=== PATIENT | female | born 1945 | race Caucasian/White ===

== ENCOUNTER → 2016-05-22 18:42 | Outpatient (CLI) | payer MEDICARE, OTHER ==
[2011-07-27 16:29] VITALS: BMI 28.6
== END | disposition home or self-care (01) ==
LOC: D.MAMMO 15:15
DX: Z12.31 Encounter for screening mammogram for malignant neoplasm of breast (principal)

== ENCOUNTER 2016-12-25 05:47 | Day surgery (SDC) | payer MEDICARE, OTHER ==
[2016-12-24 13:12] LABS: BASOPHILS 0.7 % (0-2); EOSINOPHILS 4.3 % (0-7); HEMATOCRIT 30.2 % (36.0-48.0); HEMOGLOBIN 9.6 g/dL (12-16); IMMATURE GRANULOCYTES 0.3 % (0-5); MCH 32.8 pg (26.0-34.0); MCHC 31.8 g/dL (31.0-37.0); MCV 103.1 fL (80.0-100.0); MEAN PLATELET VOLUME 10.2 fL (7.4-10.4); MONOCYTES 6.7 % (2-11); PLATELET COUNT 286 10x3/uL (130-400); RBC 2.93 10x6/uL (4.00-5.40); RDW 17.4 % (11.5-14.5)
[2016-12-24 13:21] LABS: APTT 23.3 SECONDS (22.8-39.4)
[2016-12-24 13:30] LABS: ANION GAP 16.3 mmol/L (8-16); CREATININE - SERUM 5.2 mg/dL (0.6-1.3); POTASSIUM - SERUM 4.3 mmol/L (3.5-5.1)
[~2016-12-25] VITALS: Ht 167.6 cm; Wt 71.7 kg
[~2016-12-25 05:47] MED LIST: ASPIRIN EC81 M1 PO; CO Q-1050 MG PO; FENOFIBRATE134 MG PO; LOSARTAN POTASS25 MG PO; PEPCID20 MG PO; PROCRIT/EP40000 UNIT SQ; PROLIA INJ 660 MG/M1 IJ; PYRIDOXINE HCL100 MG PO; STOOL SOFTENER100 M1 PO; VITAMIN D5000 UNIT PO
[2016-12-25 07:11] VITALS: BP 124/56; Ht 167.6 cm; Wt 71.7 kg
[2016-12-25] MEDS ORDERED: ULTRAM50 MG PO (10:13)
--- NOTE | 2016-12-25 12:59 | NUR ---
1115 IV DC WITH CATHER TIP INTACT
--- NOTE | 2016-12-25 13:00 | OP ---
PATIENT NAME: GARRETT GASPAR MEDICAL RECORD: [id number] :47 LOCATION:[facility] ADMISSION DATE: SURGEON: YANA DUMONT MD DATE OF OPERATION: 12/25/2016 REFERRING PHYSICIAN: Yasir Briones MD PREOPERATIVE DIAGNOSIS: Chronic kidney disease stage IV. POSTOPERATIVE DIAGNOSIS: Chronic kidney disease stage IV. OPERATION PERFORMED: Creation of a right wrist Alonzo-type radiocephalic AV fistula. SURGEON: Yana Dumont MD ANESTHESIA: Regional nerve block plus general anesthesia with LMA per ASSISTANT CENTER MANAGER. PREOPERATIVE NOTE: Ms. Gaspar is a very pleasant 71-year-old white female with chronic kidney disease, who, it is anticipated, will require dialysis and was referred to me for provision of a preemptive AV fistula. She is brought to the OR today as an outpatient to have that operation. She has a pacemaker on the left, so despite being right handed, we are going to place the pacemaker on the right. Her preoperative vein map studies indicated a potentially usable cephalic vein and radial artery for a Alonzo AV wrist fistula. DESCRIPTION OF PROCEDURE: Under regional block anesthesia, which was utilized for vasodilatation; and general anesthesia by LMA per ASSISTANT CENTER MANAGER, the patient's right arm was prepped and draped in a sterile manner. A Herod drain was used as a proximal venous tourniquet and nitroglycerin ointment was applied to the intact skin of arm and forearm. The patient did indeed display a significant venodilation with a visible cephalic vein at the wrist and a large median cubital vein. Ultrasound examination demonstrated the cephalic vein at the wrist to be 3 mm to 4 mm in diameter with a good lumen proximally. The radial artery appeared healthy without atherosclerotic change. I elected to go ahead with an attempted wrist fistula. I made a longitudinal incision at the radial aspect of the wrist and exposed the cephalic vein and dissected it from the surrounding tissues. I treated it with topical papaverine. It was closed distally with 2 Hemoclips and then transected and bevelled. It was flushed, hydrostatically distended, dilated with heparinized saline, and treated repeatedly with topical papaverine. The radial artery was exposed and controlled proximally and distally with Silastic loops. Small branches were divided with electrocautery. The artery was occluded and opened, flushed proximally and distally with heparinized saline, and then an approximately 5-mm long ____ anastomosis was created with the bevelled end of vein to side of artery with running 7-0 Prolene. When the suture line was completed and the occluding atraumatic vascular clamp on the vein and the Silastic loops on the artery were released, excellent flow developed in the fistula. The suture line was hemostatic. There were no kinks or other apparent complications. I went on then to close the wound with interrupted inverted 3-0 Vicryl, running intracuticular 4-0 Monocryl, and Dermabond glue. The skin was sealed and closed with Dermabond glue and dressed with Maxorb Ag, Tegaderm, and Cavilon skin prep. The patient was awakened and taken to the recovery room in stable condition. OPERATIVE REPORT [id number] GARRETT GASPAR There was no blood loss during the procedure. All sponges, instruments, and needles were accounted for. No drain was used. No surgical specimen was submitted for histopathology. PLAN: The patient will go home today with a prescription for tramadol 50 mg, she can take one tablet or half a tablet every 4-6 hours p.r.n. for pain. She should elevate her arm, and if possible, leave the original operative dressing intact. I will have an appointment arranged for her to return to see me next week for wound check and dressing change. TRANSINT:[id number] Voice Confirmation ID: [id number] DOCUMENT ID: [id number] YANA DUMONT MD at 1300 CC: YASIR BRIONES MD [id number] DICTATION DATE: 12/25/16 1025 LSAT INSTRUCTOR: 12/25/16 [id number] [place] [address]
== END 2016-12-25 13:01 | disposition home or self-care (01) ==
LOC: D.OPS 05:47 → D.PAN 08:00 → D.OPS 13:01
PROVIDERS: Surgery
DX: I12.9 Hypertensive chronic kidney disease with stage 1 through stage 4 chronic kidney disease, or unspecified chronic kidney disease (principal); N18.4 Chronic kidney disease, stage 4 (severe); K21.9 Gastro-esophageal reflux disease without esophagitis; Z01.812 Encounter for preprocedural laboratory examination

== ENCOUNTER 2017-01-05 15:49 | Emergency (ER) | payer MEDICARE, OTHER ==
[2016-12-25 07:11] VITALS: BMI 25.5
[~2017-01-05 15:49] MED LIST changes: +ULTRAM50 MG PO
== END 2017-01-05 17:54 | disposition home or self-care (01) ==
LOC: D.ER 15:49
DX: S92.352A Displaced fracture of fifth metatarsal bone, left foot, initial encounter for closed fracture (principal); W10.9XXA Fall (on) (from) unspecified stairs and steps, initial encounter; Y93.89 Activity, other specified; Y92.029 Unspecified place in mobile home as the place of occurrence of the external cause; K21.9 Gastro-esophageal reflux disease without esophagitis

== ENCOUNTER 2017-03-13 11:00 | Outpatient (CLI) | payer MEDICARE, OTHER ==
[~2017-03-13] VITALS: Ht 167.6 cm; Wt 68.6 kg
[2017-03-13 11:52] VITALS: BP 153/70; Ht 167.6 cm; Wt 68.6 kg
== END 2017-03-13 11:55 | disposition home or self-care (01) ==
LOC: D.OPS 11:00
DX: M81.0 Age-related osteoporosis without current pathological fracture (principal)

== ENCOUNTER 2017-03-31 10:15 | Emergency (ER) | payer MEDICARE, OTHER ==
[2017-03-13 11:52] VITALS: BMI 24.4
[2017-03-31 11:41] LABS: APPEARANCE CLEAR (CLEAR); BILIRUBIN NEGATIVE (NEGATIVE); COLOR YELLOW (YELLOW); GLUCOSE 50 mg/dL (NEGATIVE); KETONE NEGATIVE (NEGATIVE); NITRITE NEGATIVE (NEGATIVE); PROTEIN 2+ mg/dL (NEGATIVE); UROBILINOGEN NORMAL (NORMAL)
[2017-03-31 11:42] LABS: BASOPHILS 0.1 % (0-2); EOSINOPHILS 0.1 % (0-7); HEMATOCRIT 28.6 % (36.0-48.0); HEMOGLOBIN 8.9 g/dL (12-16); IMMATURE GRANULOCYTES 0.3 % (0-5); LYMPHOCYTES 2.6 % (15-50); MCH 30.6 pg (26.0-34.0); MCHC 31.1 g/dL (31.0-37.0); MCV 98.3 fL (80.0-100.0); MEAN PLATELET VOLUME 10.6 fL (7.4-10.4); MONOCYTES 7.8 % (2-11); NEUTROPHILS 89.1 % (40-80); PLATELET COUNT 244 10x3/uL (130-400); RBC 2.91 10x6/uL (4.00-5.40); RDW 17.2 % (11.5-14.5); WBC 14.7 10x3/uL (4.8-10.8)
[2017-03-31 11:42] LABS: BACTERIA MODERATE /hpf (NONE SEEN); EPITHELIAL CELLS 0-5 /hpf (0-5); RED CELLS - URINE OCC /hpf (0-5); WHITE CELLS - URINE NSEEN /hpf (0-5)
[2017-03-31 11:55] LABS: ALBUMIN 3.7 g/dL (3.4-5.0); ANION GAP 20.3 mmol/L (8-16); BILIRUBIN - TOTAL 0.8 mg/dL (0.2-1.3); CARBON DIOXIDE 17.8 mmol/L (21.0-32.0); CREATININE - SERUM 5.2 mg/dL (0.6-1.3); POTASSIUM - SERUM 4.1 mmol/L (3.5-5.1); PROTEIN - SERUM 7.4 g/dL (6.4-8.2)
[2017-03-31 11:57] LABS: CALCIUM 5.5 mg/dL (8.5-10.1)
== END 2017-03-31 13:19 | disposition home or self-care (01) ==
LOC: D.ER 10:15
PROVIDERS: Emergency Medicine; Nurse Practitioner Family
DX: S39.012A Strain of muscle, fascia and tendon of lower back, initial encounter (principal); X58.XXXA Exposure to other specified factors, initial encounter; Y93.89 Activity, other specified; Y92.019 Unspecified place in single-family (private) house as the place of occurrence of the external cause; M62.830 Muscle spasm of back; K21.9 Gastro-esophageal reflux disease without esophagitis; I10 Essential (primary) hypertension

== ENCOUNTER 2017-07-19 05:35 | Day surgery (SDC) | payer MEDICARE, OTHER ==
[2017-07-18 12:18] LABS: BASOPHILS 0.7 % (0-2); EOSINOPHILS 5.2 % (0-7); HEMATOCRIT 33.5 % (36.0-48.0); HEMOGLOBIN 10.3 g/dL (12-16); IMMATURE GRANULOCYTES 0.1 % (0-5); LYMPHOCYTES 12.2 % (15-50); MCH 28.5 pg (26.0-34.0); MCHC 30.7 g/dL (31.0-37.0); MCV 92.5 fL (80.0-100.0); MEAN PLATELET VOLUME 10.2 fL (7.4-10.4); MONOCYTES 7.8 % (2-11); RBC 3.62 10x6/uL (4.00-5.40); RDW 17.8 % (11.5-14.5); WBC 7.3 10x3/uL (4.8-10.8)
[2017-07-18 12:19] LABS: PLATELET COUNT 329 10x3/uL (130-400)
[2017-07-18 12:21] LABS: ANION GAP 13.9 mmol/L (8-16); CALCIUM 11.5 mg/dL (8.5-10.1); CARBON DIOXIDE 28.2 mmol/L (21.0-32.0); CREATININE - SERUM 7.4 mg/dL (0.6-1.3); POTASSIUM - SERUM 4.1 mmol/L (3.5-5.1)
[2017-07-18 12:23] LABS: APTT 25.9 SECONDS (22.8-39.4); INR 1.09 (0.85-1.17); PROTIME 13.7 SECONDS (11.6-15.0)
[~2017-07-19] VITALS: Ht 167.6 cm; Wt 64.0 kg
--- NOTE | ~2017-07-19 | OP ---
PATIENT NAME: GARRETT MCGEE MEDICAL RECORD: [id number] :47 LOCATION:[facility] ADMISSION DATE: SURGEON: YANA DUMONT MD DATE OF OPERATION: 07/19/2017 REFERRING PHYSICIAN: Yasir Briones MD PREOPERATIVE DIAGNOSIS: End-stage renal disease. OPERATION PERFORMED: Laparoscopic implantation of peritoneal dialysis catheter. ANESTHESIA: General endotracheal per SECURITY INSTALLATION SALES TECHNICIAN. SURGEON: aYna Dumont MD PREOPERATIVE NOTE: This 72-year-old white female patient has been followed with chronic kidney disease and she now needs to start dialysis. She has a radiocephalic fistula, which is functioning and has matured, but has not been used, but she is to start dialysis with a peritoneal catheter, which she is here for implantation of today. Physical examination reveals the abdomen to be soft and nontender. She has a right lower quadrant paramedian scar as well as a midline lower abdomen laparotomy scar. The paramedian scar was made for a oophorectomy and the midline abdomen was used for total abdominal hysterectomy completed in 2 stages. She is brought to the operating room now for a laparoscopy and PD catheter insertion. DESCRIPTION OF PROCEDURE: Under general endotracheal anesthesia per SECURITY INSTALLATION SALES TECHNICIAN, the patient was placed in supine position and prepped and draped in a sterile manner. I made an incision in the left upper quadrant and inserted a 5-mm diameter Optiview Xcel port with a 5 mm 0-degree laparoscope in place. The abdomen was insufflated with carbon dioxide. Examination then demonstrated extensive adhesions in the right side of the abdomen and in the pelvis with the left side of the abdomen being fairly wide open. I did only very minimal adhesiolysis and then decided to go ahead and place a catheter directed towards the pelvis on the left side. I chose a left-sided Medcomp dual cuff swan neck coil catheter and held to the end of the catheter at the level of the symphysis pubis and identified the site on the anterior abdominal wall to the left of the midline for the insertion into the rectus sheath. I made an incision there and exposed the anterior rectus sheath and then inserted an introducer needle into the rectus muscle and directed it inferiorly and laterally keeping within the substance of the rectus muscle as far as possible and in the preperitoneal space. This is done to create a tunnel, which is intended to direct the catheter towards the pelvis. A guidewire and then a peel-away sheath were inserted and then the catheter was inserted. The cuff was embedded in the rectus deep to the anterior rectus sheath where a pursestring suture of 0 Vicryl was placed. To assure the catheter would not drift into the upper quadrant, I placed another suture anteriorly with a Jah suture passer, placed a 0 Vicryl around the catheter in the left lower quadrant, an inch or two below the rectus tunnel. The catheter was then pulled through a laterally and inferiorly directed subcutaneous tunnel and exit site. Note that I did insert a second 5-mm port in the left lower quadrant to manipulate the catheter and help assist with adhesiolysis and the catheter exit site actually was through that small skin incision. The catheter was then irrigated and aspirated and was OPERATIVE REPORT [id number] GARRETT MCGEE noted to function well. It was heparin-locked, clamped and capped. The exit site was closed around the catheter more snugly with a single interrupted inverted subcuticular 3-0 Vicryl suture. The catheter was fixed to the skin with Mastisol and quarter-inch Steri-Strips. The other ports were removed and those wounds infiltrated with 0.25% Marcaine without epinephrine and closed with interrupted inverted subQ or subcuticular 3-0 Vicryl and the longer incision near the midline was closed with a running 4-0 Monocryl intracuticular suture. The incisions were sealed with glue and dressed with Maxorb Ag, Tegaderm and Cavilon skin prep. A chlorhexidine containing BioPatch was placed on the catheter at the exit site. This was covered with some Maxorb AG and a Tegaderm. The catheter was then coiled and then covered with a Medipore dressing. The patient was awakened from anesthetic and taken to the recovery room in stable condition. Blood loss during the operation was truly minimal about 5 cc. All sponges, instruments and needles were accounted for. No drain was used and no surgical specimen was submitted for histopathology. I will plan for the patient to go home today and resume her usual diet, activities and medications. She is given a prescription for 10 tablets of Mallie 5/325. She can take one p.o. every 4 hours p.r.n. for pain. I will see her back in my office in 2 weeks. She is to see the peritoneal dialysis [facility] nurses next week for catheter flushing and I am asking them to go ahead and start next week if possible frequent low volume exchanges. I am concerned with the extensive adhesions catheter function may still be a problem despite the pains I have taken to keep the catheter in an open space just above the pelvis. TRANSINT:[id number] Voice Confirmation ID: [id number] DOCUMENT ID: [id number] YANA DUMONT MD at 0847 CC: YASIR BRIONES [id number] DICTATION DATE: 07/19/17 1025 LEADERSHIP DEVELOPMENT MANAGER: 07/19/17 1243 [facility] [place] 07/19/[address] [facility] [address] [place] [address]
[~2017-07-19 05:35] MED LIST changes: +RENVELA800 MG PO; +ZIAC 10-6.25 MG1 TAB PO
[2017-07-19 06:28] VITALS: BP 139/62; Ht 167.6 cm; Wt 64.0 kg
[2017-09-05] MEDS ORDERED: CLARITIN 10 MG10 MG PO (12:09)
== END 2017-07-19 12:10 | disposition home or self-care (01) ==
LOC: D.OPS 05:35 → D.PAN 08:00 → D.OPS 08:00
PROVIDERS: Surgery
DX: N18.6 End stage renal disease (principal); Z99.2 Dependence on renal dialysis; Z01.812 Encounter for preprocedural laboratory examination

== ENCOUNTER 2017-09-06 05:55 | Day surgery (SDC) | payer MEDICARE, OTHER ==
[2017-09-05 13:19] LABS: INR 1.03 (0.85-1.17); PROTIME 13.1 SECONDS (11.6-15.0)
[2017-09-05 13:20] LABS: APTT 33.3 SECONDS (22.8-39.4)
[2017-09-05 13:23] LABS: ANION GAP 14.8 mmol/L (8-16); CARBON DIOXIDE 26.2 mmol/L (21.0-32.0); CREATININE - SERUM 5.8 mg/dL (0.6-1.3)
[2017-09-05 13:35] LABS: EOSINOPHILS 4.7 % (0-7); HEMATOCRIT 33.2 % (36.0-48.0); IMMATURE GRANULOCYTES 0.2 % (0-5); LYMPHOCYTES 19.4 % (15-50); MCH 30.2 pg (26.0-34.0); MCHC 30.1 g/dL (31.0-37.0); MCV 100.3 fL (80.0-100.0); MEAN PLATELET VOLUME 10.4 fL (7.4-10.4); MONOCYTES 8.2 % (2-11); NEUTROPHILS 66.5 % (40-80); PLATELET COUNT 295 10x3/uL (130-400); RBC 3.31 10x6/uL (4.00-5.40); RDW 19.1 % (11.5-14.5); WBC 5.7 10x3/uL (4.8-10.8)
[~2017-09-06] VITALS: Ht 167.6 cm; Wt 68.5 kg
--- NOTE | ~2017-09-06 | OP ---
PATIENT NAME: GARRETT GASPAR MEDICAL RECORD: [id number] :47 LOCATION:[facility] ADMISSION DATE: SURGEON: YANA DUMONT MD DATE OF OPERATION: 09/06/2017 REFERRED BY: Yasir Briones MD PREOPERATIVE DIAGNOSES: End-stage renal disease, dependence on hemodialysis, hypertension, hyperkalemia, and mechanical complication of peritoneal dialysis catheter. POSTOPERATIVE DIAGNOSES: End-stage renal disease, dependence on hemodialysis, hypertension, hyperkalemia, and mechanical complication of peritoneal dialysis catheter. PREOPERATIVE NOTE: Ms. Gaspar is a 72-year-old white female patient with end-stage renal disease, who has a right radiocephalic AV fistula, which was never used. She began peritoneal dialysis as her first mode of treatment for end-stage renal disease. I performed laparoscopy and implanted her peritoneal dialysis catheter recently and it has not been draining well. Her history is important because she has had about 5 lower abdominal and pelvic operations for endometriosis and complications of endometriosis, such as 2 different operations for salpingo-oophorectomy and final operation for total abdominal hysterectomy. When I did her laparoscopy, I found as one might imagine that considerable adhesions in the lower abdomen and pelvis, and I actually placed her catheter on the left side in the left gutter. She is brought back to the operating room at this time to try to revise her catheter. We expect this to require extensive adhesiolysis. DESCRIPTION OF PROCEDURE: Under general endotracheal anesthesia, the patient was prepped and draped in sterile manner and prepared for laparoscopy. The peritoneal cavity and abdomen were entered with a 5-mm Optiview Xcel port with a 0-degree 5-mm diameter laparoscope in place. This was done through a small incision in the right upper quadrant. Pneumoperitoneum was established. Adhesions were found to be quite significant and the catheter remained exactly in the left upper quadrant where I had placed it without any adhesions to it or around it. I did do a cathetergram before beginning the procedure and noted that there was free flow of contrast into the peritoneal cavity and that there was no obvious omental wrap and indeed that was the finding. There was no wrap. Believing that her catheter drainage problem was due to her intraabdominal adhesions, I embarked on a campaign to lyse adhesions. I inserted 4 additional 5-mm ports. These were used for instrumentation and a Harmonic scalpel device. Adhesiolysis was performed dissecting a small intestine and omentum from the anterior abdominal wall and colon and small intestine from the pelvic margins. There was very little bleeding fortunately. I then was able to simply lift the dialysis catheter from its left upper quadrant position and dropped it down into the pelvis. I did perform extensive irrigation with saline and reexamined the viscera. Of note, there was no inadvertent or unrecognized injury to the colon or small bowel. Insufflated air was suctioned away and the instrumentation removed. The incisions were infiltrated with 0.25% Marcaine and then closed with inverted subcuticular 3-0 Vicryl and Dermabond glue. They were dressed with Maxorb AG, Tegaderm and Cavilon skin prep. At that point, the patient was awakened and OPERATIVE REPORT [id number] GARRETT GASPAR taken to the recovery room. The patient's potassium this morning was 6.0. It will be repeated in the recovery room. PLAN: If the patient's potassium is not any higher and if okay with Dr. Briones, I will plan for the patient to go home today and to begin immediately recumbent peritoneal dialysis. I have explained to her and her that they should expect the initial dialysate to be bloody and that if they can keep the area clear of blood and clots over the next few days, it is better likelihood that the catheter may continue to function, although I have cautioned them both that we can fully expect that most of the adhesions I have lysed today will reform and probably fairly quickly. I believe at this point, this is the best we can do for a peritoneal dialysis catheter and if it does not function well then she may have to change to PD. Note, the patient's right radiocephalic AV fistula has never been used. It looks to be of adequate caliber. It is rather soft though with weak pulsation. There is a fairly large vein which drains around over the dorsum of the wrist and into the basilic circulation. It may be that for this fistula to work appropriately, it will need to have the collateral vein ligated and I think there should be a fistulogram to see if there are any other areas, which might be improved upon to make it a better, more reliable fistula. She will come back to see me in my office in about 1 week. TRANSINT:[id number] Voice Confirmation ID: [id number] DOCUMENT ID: [id number] YANA DUMONT MD at 1451 CC: YASIR BRIONES [id number] DICTATION DATE: 09/06/17 1334 DOCUMENTATION CLERK: 09/06/17 1403 [facility] [place] 09/06/17 [id number] [place] [id number]
[~2017-09-06 05:55] MED LIST changes: +CLARITIN 10 MG10 MG PO
[2017-09-06 07:02] VITALS: BP 142/77; Ht 167.6 cm; Wt 68.5 kg
[2017-09-06] MEDS ORDERED: HYDROCODON-ACE1 EAC7 PO (10:55)
== END 2017-09-06 12:50 | disposition home or self-care (01) ==
LOC: D.OPS 05:55 → D.PAN 08:00 → D.OPS 12:50
PROVIDERS: Anesthesiology
DX: T85.691A Other mechanical complication of intraperitoneal dialysis catheter, initial encounter (principal); N73.6 Female pelvic peritoneal adhesions (postinfective); E87.5 Hyperkalemia; I12.0 Hypertensive chronic kidney disease with stage 5 chronic kidney disease or end stage renal disease; N18.6 End stage renal disease; Z99.2 Dependence on renal dialysis; Z01.812 Encounter for preprocedural laboratory examination

== ENCOUNTER 2017-11-01 05:30 | Day surgery (SDC) | payer MEDICARE, OTHER ==
[2017-10-31 10:04] LABS: BASOPHILS 0.6 % (0-2); HEMATOCRIT 35.8 % (36.0-48.0); HEMOGLOBIN 11.3 g/dL (12-16); IMMATURE GRANULOCYTES 0.2 % (0-5); LYMPHOCYTES 18.9 % (15-50); MCH 32.5 pg (26.0-34.0); MCHC 31.6 g/dL (31.0-37.0); MCV 102.9 fL (80.0-100.0); MEAN PLATELET VOLUME 9.8 fL (7.4-10.4); NEUTROPHILS 68.3 % (40-80); PLATELET COUNT 252 10x3/uL (130-400); RBC 3.48 10x6/uL (4.00-5.40); RDW 17.8 % (11.5-14.5); WBC 6.5 10x3/uL (4.8-10.8)
[2017-10-31 10:12] LABS: ANION GAP 14.4 mmol/L (8-16); CARBON DIOXIDE 27.8 mmol/L (21.0-32.0); CREATININE - SERUM 5.5 mg/dL (0.6-1.3); POTASSIUM - SERUM 5.2 mmol/L (3.5-5.1)
[2017-10-31 10:23] LABS: INR 1.08 (0.85-1.17); PROTIME 13.6 SECONDS (11.6-15.0)
[2017-10-31 10:24] LABS: APTT 36.4 SECONDS (22.8-39.4)
[~2017-11-01] VITALS: Ht 167.6 cm; Wt 64.0 kg
--- NOTE | ~2017-11-01 | OP ---
PATIENT NAME: GARRETT GASPAR MEDICAL RECORD: [id number] :47 LOCATION:D.OPS ADMISSION DATE: SURGEON: YANA DUMONT MD DATE OF OPERATION: 11/01/2017 REFERRING PHYSICIANS: Yasir Briones MD and Maycol Leon MD PREOPERATIVE DIAGNOSES: End-stage renal disease and dependence on renal dialysis and mechanical complication of peritoneal dialysis catheter. OPERATION PERFORMED: Removal of peritoneal dialysis catheter. SURGEON: Yana Dumont MD ANESTHESIA: General by LMA per MOBILE CRANE OPERATOR. PREOPERATIVE NOTE: Ms. Gaspar unfortunately has been unsuccessful with attempts to do peritoneal dialysis and she is here today to have her catheter removed. DESCRIPTION OF PROCEDURE: Under general anesthesia with LMA, the patient was placed in supine position, prepped and draped in a sterile manner. Two incisions were made to expose the 2 Dacron felt cuffs. The more superficial was easily from the surrounding fatty tissues and the catheter transected and the external portion removed. The medial incision exposed the deeper Dacron felt cuff, which was buried deep to the anterior rectus sheath. This was freed from the surrounding tissues and the remaining portion of the catheter and the intraperitoneal portion were removed. There was a fibrin plug and the catheter. All of the catheter segments were thrown away and not sent for any type of culturing or histologic study. The wounds were infiltrated with 0.25% Marcaine with epinephrine and irrigated with saline and closed with interrupted inverted 3-0 Vicryl and running intracuticular 4-0 Stratafix. The incisions in addition were sealed with Dermabond glue and dressed with Maxorb Ag, Tegaderm, and Cavilon skin prep. She was awakened and taken to the recovery room. I plan for her to go home later today and follow up with me in my office next week. TRANSINT:[id number] Voice Confirmation ID: [id number] DOCUMENT ID: [id number] YANA DUMONT MD at 1709 CC: MAYCOL LEON MD and YASIR BRIONES [id number] DICTATION DATE: 11/01/17922 ELECTRICAL PARTS RECONDITIONER: 11/01/17 1011 [facility] 11/01/17 [id number] [place] [address]
[~2017-11-01 05:30] MED LIST changes: +HYDROCODON-ACE1 EAC7 PO
[2017-11-01 06:12] VITALS: BP 114/77; Ht 167.6 cm; Wt 64.0 kg
== END 2017-11-01 10:55 | disposition home or self-care (01) ==
LOC: D.OPS 05:30
PROVIDERS: Surgery
DX: N18.6 End stage renal disease (principal); T85.691A Other mechanical complication of intraperitoneal dialysis catheter, initial encounter; Z99.2 Dependence on renal dialysis; Z01.812 Encounter for preprocedural laboratory examination

== ENCOUNTER → 2018-01-07 20:20 | Outpatient (CLI) | payer MEDICARE, OTHER ==
[2017-11-01 06:12] VITALS: BMI 22.8
== END | disposition home or self-care (01) ==
LOC: D.MAMMO 09:15
DX: Z12.31 Encounter for screening mammogram for malignant neoplasm of breast (principal)

== ENCOUNTER 2018-01-20 13:00 | Day surgery (SDC) | payer MEDICARE, OTHER ==
[~2018-01-20] VITALS: Ht 167.6 cm; Wt 70.5 kg
--- NOTE | ~2018-01-20 | OP ---
PATIENT NAME: GARRETT MCGEE MEDICAL RECORD: [id number] :47 LOCATION:[facility] ADMISSION DATE: SURGEON: JUAN CARLOS AYERS DO DATE OF OPERATION: 01/20/2018 PROCEDURE: Colonoscopy with endoscopic mucosal resection and polypectomy. INDICATIONS FOR PROCEDURE: Screening for colorectal cancer. SCOPE: Touchmedia video pediatric colonoscope. MEDICATIONS: Propofol 700 mg IV per anesthesia. WITHDRAWAL TIME: 29 minutes. ESTIMATED BLOOD LOSS: Less than 2 mL. COMPLICATIONS: None. FINDINGS: Informed consent was given. The patient was made comfortable with the above medication. After reaching an adequate level of sedation by slow IV push, the patient was placed on her left side. A digital rectal examination was performed and was normal. The endoscope was then advanced under direct visualization through the rectum to the cecum and into the terminal ileum. The endoscope was slowly withdrawn and mucosa was carefully examined. The prep quality was good. The difficulty of the procedure was moderate due to significant colon movement during the procedure with respiration and the need for position changes on to the patient's back to pass through the sigmoid region. Abdominal pressure was also used occasionally to aid passage in the endoscope. There was evidence of moderate diverticulosis of the distal descending and sigmoid colon during the examination. There were multiple polyps visualized on today's examination. The first was located in the cecum. There was a benign appearing polyp measuring approximately 6 mm in diameter. It was removed using endoscopic mucosal resection technique with a saline pillow and a snare polypectomy. In the ascending colon, there were two benign-appearing sessile polyps, which ranged in size from 2-4 mm in diameter. They were both removed using hot forceps. One of these sites continued to bleed after removal of the polyp. For hemostasis measures, a single endoclip was placed successfully with hemostasis. In the transverse colon, there were two separate benign-appearing sessile polyps, which measured 2-4 mm in diameter. They were both removed using hot forceps. Similar to the other polyp that bled one of these sites did continue to ooze blood after removal and cautery, so a single endoclip was used successfully for hemostasis. In the rectum, there was a benign appearing larger, sessile polyp, which measured approximately 9 mm in diameter. It was removed using endoscopic mucosal resection technique with a saline pillow and snare polypectomy. All of these polyps were retrieved and will be submitted for pathology. Retroflexion was performed in the rectum with appearance of a normal appearing rectal wall. The endoscope was then withdrawn from the patient. The patient tolerated the procedure well and there were no complications. IMPRESSION: 1. Moderate diverticulosis of the distal descending and sigmoid colon. 2. Multiple polyps as described above, removed using a combination of hot forceps and EMR technique. OPERATIVE REPORT [id number] GARRETT MCGEE PLAN AND RECOMMENDATIONS: 1. Discharge home when recovery parameters are met. 2. Follow up biopsy specimen results. 3. High fiber diet. 4. Continue current medications. 5. Recall colonoscopy in 2 years based on the number and types of polyps removed on today's examination. TRANSINT:[id number] Voice Confirmation ID: [id number] DOCUMENT ID: [id number] JUAN CARLOS AYERS DO at 0835 CC: [id number] DICTATION DATE: 01/20/18 1513 ABE TEACHER: 01/20/18 1645 [facility] 01/20/18 [id number] [place] [address]
[2018-01-20 13:28] LABS: HEMATOCRIT 30.2 % (36.0-48.0); HEMOGLOBIN 9.8 g/dL (12-16); MCH 32.8 pg (26.0-34.0); MCHC 32.5 g/dL (31.0-37.0); MEAN PLATELET VOLUME 9.4 fL (7.4-10.4); RBC 2.99 10x6/uL (4.00-5.40); RDW 15.4 % (11.5-14.5); WBC 6.1 10x3/uL (4.8-10.8)
[2018-01-20 13:41] LABS: APTT 32.2 SECONDS (22.8-39.4); INR 1.11 (0.85-1.17); PROTIME 13.8 SECONDS (11.6-15.0)
[2018-01-20] MEDS ORDERED: LIPITOR20 MG PO (13:42)
[2018-01-20 13:44] LABS: CARBON DIOXIDE 25.6 mmol/L (21.0-32.0); CREATININE - SERUM 7.1 mg/dL (0.6-1.3); POTASSIUM - SERUM 4.6 mmol/L (3.5-5.1)
[2018-01-20 13:57] VITALS: BP 129/59; Ht 167.6 cm; Wt 70.5 kg
== END 2018-01-20 16:20 | disposition home or self-care (01) ==
LOC: D.OPS 13:00
PROVIDERS: Anesthesiology
DX: Z12.11 Encounter for screening for malignant neoplasm of colon (principal); K57.30 Diverticulosis of large intestine without perforation or abscess without bleeding; D12.2 Benign neoplasm of ascending colon; D12.0 Benign neoplasm of cecum; D12.3 Benign neoplasm of transverse colon; D12.8 Benign neoplasm of rectum; Z01.812 Encounter for preprocedural laboratory examination

== ENCOUNTER → 2018-06-12 13:25 | Outpatient (CLI) | payer MEDICARE, OTHER ==
[2018-01-20 13:57] VITALS: BMI 25.0
[~2018-06-12 13:25] MED LIST changes: +LIPITOR20 MG PO
== END | disposition home or self-care (01) ==
LOC: D.HCCARDIO 05-27 12:30
PROVIDERS: ATTEND Internal Medicine Cardiovascular Disease
DX: I34.0 Nonrheumatic mitral (valve) insufficiency (principal)

== ENCOUNTER → 2019-09-17 11:09 | Outpatient (CLI) | payer MEDICARE, OTHER ==
[2018-01-20 13:57] VITALS: BMI 25.0
== END | disposition home or self-care (01) ==
LOC: D.HCCECHO 11:09
PROVIDERS: ATTEND Internal Medicine Cardiovascular Disease
DX: I35.0 Nonrheumatic aortic (valve) stenosis (principal)

== ENCOUNTER 2019-09-18 11:45 | Outpatient (CLI) | payer MEDICARE, OTHER ==
[2018-01-20 13:57] VITALS: BMI 25.0
== END 2019-09-18 12:45 | disposition home or self-care (01) ==
LOC: D.MAMMO 11:45
PROVIDERS: ATTEND Family Medicine
DX: Z12.31 Encounter for screening mammogram for malignant neoplasm of breast (principal)